=== PATIENT | female | born 1955 | race Caucasian/White ===

== ENCOUNTER 2018-11-03 15:48 | Outpatient (CLI) | payer MEDICARE, MEDICAID ==
[2018-11-03 16:32] LABS: Estimated GFR-MDRD - POC Greater than 90
--- NOTE | 2018-11-03 17:09 | MRI ---
Brain MRI with and without contrast: 11/03/2018 HISTORY: Headache, falls, dizziness TECHNIQUE: Multiplanar multisequence MR imaging of the brain is obtained with and without contrast FINDINGS: The diffusion weighted imaging demonstrates no evidence for acute infarction. The axial gradient echo imaging demonstrates no evidence for intracranial hemorrhage. There are a few subcentimeter scattered foci of increased T2 and FLAIR signal within the periventricu lar and deep white matter. Similar patchy increased signal intensity is noted within the demetrius. These findings suggest relatively mild small vessel disease. Arterial flow voids at the axial level of the skull base appear grossly unremarkable on the T2-weight ed imaging. Imaged paranasal sinuses and mastoid air cells are well aerated. The postcontrast imaging demonstrate s no abnormal enhancement within the brain parenchyma. 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 IMPRESSION: No acute findings.
== END 2018-11-03 15:49 | disposition home or self-care (01) ==
LOC: SCSMRI 15:48
PROVIDERS: ATTEND Psychiatry & Neurology Neurology
DX: R51 Headache (principal)
CPT/HCPCS: 70553; 82565

== ENCOUNTER 2019-09-11 09:28 | Outpatient (CLI) | payer MEDICARE, MEDICAID | END 2019-09-11 09:29 | disposition home or self-care (01) | LOC: DTY/OP 09:28 | PROVIDERS: ATTEND Nurse Practitioner Family | DX: E66.01 Morbid (severe) obesity due to excess calories (principal); E11.21 Type 2 diabetes mellitus with diabetic nephropathy; K21.9 Gastro-esophageal reflux disease without esophagitis; F32.9 Major depressive disorder, single episode, unspecified; Z71.3 Dietary counseling and surveillance | CPT/HCPCS: 97802 ==